=== PATIENT | female | born 1995 | race Two or more races ===

== ENCOUNTER 2016-07-28 00:15 | Emergency (ER) | payer SELFPAY ==
[~2016-07-28] VITALS: Ht 162.6 cm; Wt 129.0 kg
[2016-07-28 00:48] VITALS: BP 123/75
[2016-07-28] MEDS ORDERED: MECLIZINE 25MG TABLET PO ONE (02:00)
[2016-07-28] MEDS ORDERED: ACETAMINOPHEN 500MG TABLET PO ONE (02:00)
[2016-07-28 02:48] LABS: CLARITY URINE CLEAR (CLEAR); COLOR URINE YELLOW (YELLOW); GLUCOSE URINE NEGATIVE (NEGATIVE); KETONES URINE NEGATIVE (NEGATIVE); LEUKOCYTE ESTERASE URINE TRACE (NEGATIVE); NITRITE URINE NEGATIVE (NEGATIVE); OCCULT BLOOD URINE NEGATIVE (NEGATIVE); PROTEIN URINE NEGATIVE (NEGATIVE); SPECIFIC GRAVITY URINE 1.024 (1.005-1.030); UROBILINOGEN URINE 0.2 E.U./dL (0.2-1.0)
[2016-07-28 03:26] LABS: BACTERIA URINE TRACE; CALCIUM OXALATE CRYSTALS URINE 1+ /lpf; RBC URINE 0-2 /hpf (0-2); SQUAMOUS EPITHELIAL CELL URINE FEW /lpf (RARE/1+); WBC URINE 0-2 /hpf (0-2)
== END 2016-07-28 03:13 | disposition home or self-care (01) ==
LOC: ER 00:17
DX: K29.00 Acute gastritis without bleeding (principal)
CPT/HCPCS: 81001; 81025; 99283; J8597